=== PATIENT | male | born 2000 | race Caucasian/White ===

== ENCOUNTER 2024-01-06 12:07 | Emergency (ER) | payer OTHER ==
[~2024-01-06] VITALS: Ht 172.7 cm; Wt 61.4 kg
[2024-01-06 12:35] VITALS: BP 126/74; TEMP 98.3
[2024-01-06 15:20] VITALS: PULSE 64
== END 2024-01-06 15:20 | disposition home or self-care (01) ==
LOC: COL.ER 12:07
DX: S00.33XA Contusion of nose, initial encounter (principal); W50.0XXA Accidental hit or strike by another person, initial encounter; Y93.67 Activity, basketball